=== PATIENT | female | born 1975 | race Caucasian/White ===

== ENCOUNTER 2019-09-08 13:20 | Emergency (ER) | payer OTHER ==
[~2019-09-08] VITALS: Ht 165.1 cm; Wt 64.4 kg
[2019-09-08 18:38] VITALS: BP 117/60
== END 2019-09-08 18:59 | disposition home or self-care (01) ==
LOC: ER 13:20
DX: G43.909 Migraine, unspecified, not intractable, without status migrainosus (principal); G45.9 Transient cerebral ischemic attack, unspecified; I10 Essential (primary) hypertension
CPT/HCPCS: 70450; 93005